=== PATIENT | male | born 2000 | race Caucasian/White ===

== ENCOUNTER 2019-02-01 21:36 | Observation (INO) ==
[2019-02-01] MEDS ORDERED: MoRPHine SULFATE 4 MG/ML 1 ML CARP\\VIAL IV STA (21:59)
[2019-02-01] MEDS ORDERED: ONDANSETRON INJ 2 MG/ML 2 ML VIAL IV STA (21:59)
[2019-02-01] MEDS ORDERED: SODIUM CHLORIDE 0.9% 1000ML 1,000 ML IV SCH (22:00)
[2019-02-01 22:40] LABS: Basophils # (auto) 0.02 K/uL (0-0.2); Basophils % (auto) 0.2 %; Eosinophils # (auto) 0.13 K/uL (0-0.5); Eosinophils % (auto) 1.4 %; Hematocrit (blood only) 37.6 % (42-52); Hemoglobin 13.6 g/dL (14.0-18.0); Immature Granulocytes # (auto) 0.03 K/uL (0.00-0.02); Immature Granulocytes % (auto) 0.3 %; Lymphocytes # (auto) 0.39 K/uL (1.2-3.4); Lymphocytes % (auto) 4.1 %; Mean Corpuscular Hemoglobin 31.6 pg (25-34); Mean Corpuscular Hgb Conc 36.2 g/dL (32-36); Mean Corpuscular Volume 87.2 fL (80-100); Mean Platelet Volume 10.6 fL (7.4-10.4); Monocytes # (auto) 1.06 K/uL (0.11-0.59); Monocytes % (auto) 11.3 %; Neutrophils # (auto) 7.77 K/uL (1.4-6.5); Neutrophils % (auto) 82.7 %; Platelet Count 124 K/uL (130-400); RDW Coefficient of Variation 12.4 % (11.5-14.5); RDW Standard Deviation 39.6 fL (36.4-46.3); Red Blood Count 4.31 M/uL (4.7-6.1)
--- NOTE | 2019-02-01 22:46 | Emergency Department Note ---
History of Present Illness General Chief complaint: Abdominal Pain Stated complaint: ABDOMINAL PAIN, JUST LEFT Time Seen by Provider: 02/01/19 21:44 History of Present Illness Maximum Pain Intensity: 9 This is a 18-year-old male that presents to the emergency department via private vehicle accompanied by mother with complaints of "abdominal pain, just left the emergency department". The patient states that yesterday he had his wisdom teeth extracted, and has been taking p.o. Tylenol every 4 hours. He had 4 doses yesterday and 2 doses today. Each dose was 1000 mg. He has not taken any Advil or NSAIDs. Today around 3 PM he began with right-sided abdominal pain focused in the right upper quadrant. He has associated nausea. No vomiting. He states that he had a thorough work-up here and was discharged home doing well and as he was walking out of the department he began with increased abdominal pain that then worsened when he got home. This prompted his return here today. He rates the overall pain in the right upper quadrant is a 9/10. He notes increased nausea. He states that he has had no abdominal surgeries. No pertinent past medical history. He notes that he has been on amoxicillin for his teeth. Home Medications Home Medications Medication Instructions Recorded Confirmed Type acetaminophen [Tylenol Extra 1,000 mg PO Q6H PRN 02/01/19 02/01/19 History Strength] amoxicillin 0 mg PO BID 02/01/19 02/01/19 History Allergies Allergy/AdvReac Type Severity Reaction Status Date / Time Penicillins Allergy Unknown Unknown Verified 02/01/19 22:38 Past Med/Surg History Medical History (Updated 02/02/19 @ 00:38 by Declan Draper PA-C) No significant past medical history Surgical History (Updated 02/02/19 @ 00:32 by Declan Draper PA-C) Hx of wisdom tooth extraction Social History Preferred Language: Irish Communication Ability: Effective Boner Meat Required: No Beliefs That Will Affect Care: None Current Living Situation: Other Current Living Situation Comment: roommates while at school, otherwise w/ parents Other Information That Helps Us Care for You: No Feels Safe at Home: Yes Smoking Status: Never smoker Do You Dip or Chew Tobacco: No ; Hx Alcohol Use: Yes Hx Substance Use: No Review of Systems A total of 10 systems reviewed and were otherwise negative Physical Exam Vital Signs Vital Signs - 24 hr 02/01/19 21:37 Temperature 37.5 C Temperature Source Oral Pulse Rate 88 Respiratory Rate 20 Respiratory Effort / Characteristics Non-Labored Spontaneous Respiratory Depth Normal Blood Pressure 112/62 Blood Pressure Mean 78 Pulse Oximetry 97 Oxygen Delivery Method Room Air Sepsis Action Taken by Nursing No Action Required VITAL SIGNS - Vital signs and nursing notes were reviewed. Stable and afebrile. GENERAL -18-year-old male appearing his stated age who is in no acute distress. Communicates well with provider and answers questions appropriately. SKIN - Without rashes. No meningeal or petechial rash. HEAD - NC/AT. EYES - Sclera anicteric. EARS - No deformities of external structures noted on gross examination bilaterally. NOSE - Midline and without cyanosis. No epistaxis or purulent drainage noted. MOUTH/OROPHARYNX - Without perioral cyanosis. LUNGS - Chest wall symmetric without accessory muscle use, intercostals retractions, or central cyanosis. Normal vesicular breath sounds CTA B/L. No wheezes, rales, or rhonchi appreciated. CARDIAC - RRR with S1/S2. No murmur, rubs, or gallops appreciated. ABDOMEN - Abdominal contour normal without pulsations or visible masses. BS normoactive all four quadrants. There is right upper quadrant abdominal tenderness to palpation. No palpable masses, hepatosplenomegaly, or ascites noted. EXTREMITIES - No clubbing or peripheral cyanosis. PSYCH - A&O, and cooperates fully with examiner. Pt is very pleasant and interacts well with examiner. Course Administered Medications Lactated Ringer's (Lr) 1,000 mls @ 100 mls/hr IV .Q10H TAMIKA Stop: 03/03/19 23:50 Last Admin: 02/02/19 00:14 Dose: 100 mls/hr Documented by: [id number] Discontinued Medications Sodium Chloride (Nss 1000ml) 1,000 mls @ 999 mls/hr IV .Q1H1M TAMIKA Stop: 02/01/19 23:00 Last Infusion: 02/01/19 23:23 Dose: 0 mls/hr Documented by: [id number] Admin: 02/01/19 22:20 Dose: 999 mls/hr Documented by: [id number] Morphine Sulfate (Morphine Sulfate) 4 mg IV NOW STA Stop: 02/01/19 22:00 Last Admin: 02/01/19 22:19 Dose: 4 mg Documented by: [id number] Ondansetron HCl (Zofran) 4 mg IV NOW STA Stop: 02/01/19 22:00 Last Admin: 02/01/19 22:20 Dose: 4 mg Documented by: [id number] Medical Decision Making Laboratory Data Result diagrams: 02/01/19 22:21 02/01/19 22:26 Lab Results 02/01/19 02/01/19 Range/Units 22:21 22:26 WBC 9.40 (4.8-10.8) K/uL RBC 4.31 L (4.7-6.1) M/uL Hgb 13.6 L (14.0-18.0) g/dL Hct 37.6 L (42-52) % MCV 87.2 (80-100) fL MCH 31.6 (25-34) pg MCHC 36.2 H (32-36) g/dL RDW Std Deviation 39.6 (36.4-46.3) fL RDW Coeff of Pedro 12.4 (11.5-14.5) % Plt Count 124 L (130-400) K/uL MPV 10.6 H (7.4-10.4) fL Immature Gran % (Auto) 0.3 % Neut % (Auto) 82.7 % Lymph % (Auto) 4.1 % [place] % (Auto) 11.3 % Eos % (Auto) 1.4 % Baso % (Auto) 0.2 % Immature Gran # (Auto) 0.03 H (0.00-0.02) K/uL Neut # (Auto) 7.77 H (1.4-6.5) K/uL Lymph # (Auto) 0.39 L (1.2-3.4) K/uL [place] # (Auto) 1.06 H (0.11-0.59) K/uL Eos # (Auto) 0.13 (0-0.5) K/uL Baso # (Auto) 0.02 (0-0.2) K/uL Sodium 138 (136-145) mmol/L Potassium 3.5 (3.5-5.1) mmol/L Chloride 105 (98-107) mmol/L Carbon Dioxide 26 (21-32) mmol/L Anion Gap 7.0 (3-11) BUN 19 H (7-18) mg/dl Creatinine 1.27 (0.6-1.4) mg/dl Est Cr Clr Drug Dosing 95.8 ml/min Est GFR ( Amer) 93.6 Est GFR (Non-Af Amer) 80.8 BUN/Creatinine Ratio 15.0 (10-20) Glucose 119 H (70-99) mg/dl Calcium 8.7 (8.5-10.1) mg/dl Magnesium 1.7 L (1.8-2.4) mg/dl Total Bilirubin 0.6 (0.2-1) mg/dl AST 47 H (15-37) U/L ALT 64 (12-78) U/L Alkaline Phosphatase 44 L (45-117) U/L Total Protein 6.9 (6.4-8.2) gm/dl Albumin 3.7 (3.4-5.0) gm/dl Globulin 3.2 (2.5-4.0) gm/dl Albumin/Globulin Ratio 1.2 (0.9-2) Lipase 116 (73-393) U/L MDM Narrative Patient was seen and evaluated as above in room B8. Review was performed of nursing notes and vital signs. After obtaining a thorough history and physical examination the above work up was performed. His recent visit from today was reviewed. He underwent a thorough work-up for his presentation at that time. He returns with increased right upper quadrant abdominal pain that was worse with movement/walking. He has reproducible right upper quadrant tenderness. Vital signs stable. He does appear to be in pain but is nontoxic. After thoroughly reviewing his visit from today, it appears that both CT and ultrasound showed some "Trace pericholecystic fluid versus mild gallbladder wall thickening". It was at that time felt to be low probability of acute cholecystitis. Given the patient's return with worsening symptoms, repeat labs were obtained. He was given IV fluids, IV morphine and IV Zofran. There is no leukocytosis. Slight anemia with hemoglobin of 13.6. There is also interval elevation of AST at 47. I will note that I do not believe this to be secondary to his Tylenol use. I discussed these findings with the attending physician and subsequently with the on-call general surgeon, Dr. Ambriz. We discussed the patient's presentation, as well as his exam and findings. At this time he is not felt to require emergent surgery however further work-up in the hospital setting via the hospitalist team, HIDA scan, GI consult would be warranted. I then discussed this with the hospitalist. Patient and mother were amenable to admission and felt this be reasonable. They expressed concern about going home given the surgery and pain after discharge initially. Please refer to further documentation regarding his stay. In the evaluation and treatment of this patient, the following differential diagnoses were considered: ASC, PA, Pneumonia, GERD, Cholecystitis, Ascending Cholangitis, Cholydocholithiasis, Bowel Obstruction, PE, Amongst Others. Impression & Plan Abdominal pain, RUQ, Intractable abdominal pain Discharge Plan Visit Data *Final* Discharge Date/Time: 02/01/19 23:33 Chief Complaint: Abdominal Pain Stated Complaint: ABDOMINAL PAIN, JUST LEFT ED Provider: Yves Kimble ED Midlevel Provider: Declan Draper Discharge Problem: Abdominal pain, RUQ, Intractable abdominal pain Patient Disposition: Admitted As Inpatient Condition: Good Discharge Instructions Interventions: ED Discharge Assessment Last Done: 02/01/19 23:33
[2019-02-01 22:59] LABS: Albumin Level 3.7 gm/dl (3.4-5.0); Calcium 8.7 mg/dl (8.5-10.1); Creatinine Clr Calc Pharmacy 95.8 ml/min; Est GFR (African American) 93.6; Est GFR (Non-African American) 80.8; Potassium 3.5 mmol/L (3.5-5.1)
[2019-02-01 23:02] LABS: Albumin Globulin Ratio 1.2 (0.9-2); Bilirubin,Total 0.6 mg/dl (0.2-1); Globulin 3.2 gm/dl (2.5-4.0); Total Protein 6.9 gm/dl (6.4-8.2)
--- NOTE | 2019-02-01 23:04 | History & Physical Report ---
Date of Service February 01, 2019 Assessment & Plan (1) Abdominal pain, RUQ: Possible biliary colic Antibiotic Rx post dental procedure possibly downplaying leah cholecystitis findings on imaging Patient not septic for now Other differentials include : UTI (nitrite positive urine from earlier visit) Gastroenteritis rule out C. difficile, ongoing antibiotic course OBS F Surgery consult RE biliary colic (ER provider already in touch with Dr. Ambriz who recommends HIDA scan in a.m.) Urine cultures Stool C. difficile Complete antibiotic course post dental surgery. DVT prophylaxis. SCDs, ambulation Full code History of Present Illness Chief Complaint: abdominal pain Primary Care Provider: None Patient intends to follow-up at [facility] or [facility] for PCP services upon discharge. History obtained from patient, family, and records. No significant medical history. Patient had dental surgery yesterday after which he was prescribed a course of Amoxicillin to take for a week. This afternoon patient noted right upper quadrant pain with nausea and loose stools, nonbloody. No fever, no chills. Patient brought by mother to the emergency room. Imaging study results as follows: CT OF THE ABDOMEN AND PELVIS WITH CONTRAST 1. Normal appendix. No bowel obstruction. 2. Trace pericholecystic fluid versus mild gallbladder wall thickening. However, gallbladder not distended. These findings do not strongly suggest acute cholecystitis however if right upper quadrant pain, an ultrasound is recommended. US gallbladder 1. No gallstones. Trace sludge within the gallbladder with mild gallbladder wall thickening. No sonographic Mcgowan sign. These findings do not strongly suggest acute cholecystitis. 2. No biliary ductal dilatation. Symptoms attributed to biliary colic. Patient discharged home with instructions to comply with low-fat diet. On the way home, patient had recurrence of abdominal symptoms. Patient return to the ER. Medical History as above Surgical History : Dental surgery, thyroglossal duct cyst excision Family History : Heart disease, gallstones, DM Personal/Social history : Non-smoker, no EtOH intake, college student Allergies Allergy/AdvReac Type Severity Reaction Status Date / Time Penicillins Allergy Unknown Unknown Verified 02/01/19 22:38 Home Medications Home Medications Medication Instructions Recorded Confirmed Type acetaminophen [Tylenol Extra 1,000 mg PO Q6H PRN 02/01/19 02/01/19 History Strength] amoxicillin 0 mg PO BID 02/01/19 02/01/19 History Past Med/Surg History Medical History (Updated 02/02/19 @ 00:38 by Declan Draper PA-C) No significant past medical history Surgical History (Updated 02/02/19 @ 00:32 by Declan Draper PA-C) Hx of wisdom tooth extraction Social History Preferred Language: Syrian Communication Ability: Effective Staff Sonographer Required: No Beliefs That Will Affect Care: None Current Living Situation: Other Current Living Situation Comment: roommates while at school, otherwise w/ parents Other Information That Helps Us Care for You: No Feels Safe at Home: Yes Smoking Status: Never smoker Do You Dip or Chew Tobacco: No ; Hx Alcohol Use: Yes Hx Substance Use: No Review of Systems Review of Systems: As per HPI, all 10 systems reviewed, all other ROS negative Physical Exam Physical Exam: GENERAL: Slightly uncomfortable, no respiratory distress SKIN: Normal color, warm HEENT: [place] palpebral conjunctivae, no ptosis, dry buccal mucosa NECK : Supple, no tenderness CHEST : CTA, no tenderness HEART : RRR, no obvious murmurs ABDOMEN: Some distention, right upper quadrant tenderness EXTREMITIES : No LE swelling/tenderness, no other conspicuous deformities noted NEUROLOGIC : Coherent, no facial asymmetry, no other gross focality Results & Data Vital Signs (Past 12 Hours) Vital Signs Temp Pulse Resp BP Pulse Ox 02/01/19 21:37 37.5 C 88 20 112/62 97 Laboratory Results Laboratory Results WBC 9.40 K/uL (4.8-10.8) 02/01/19 22:21 RBC 4.31 M/uL (4.7-6.1) L 02/01/19 22:21 Hgb 13.6 g/dL (14.0-18.0) L 02/01/19 22:21 Hct 37.6 % (42-52) L 02/01/19 22:21 MCV 87.2 fL (80-100) 02/01/19 22:21 MCH 31.6 pg (25-34) 02/01/19 22:21 MCHC 36.2 g/dL (32-36) H 02/01/19 22:21 RDW Std Deviation 39.6 fL (36.4-46.3) 02/01/19 22:21 RDW Coeff of Pedro 12.4 % (11.5-14.5) 02/01/19 22:21 Plt Count 124 K/uL (130-400) L 02/01/19 22:21 MPV 10.6 fL (7.4-10.4) H 02/01/19 22:21 Immature Gran % (Auto) 0.3 % 02/01/19 22:21 Neut % (Auto) 82.7 % 02/01/19 22:21 Lymph % (Auto) 4.1 % 02/01/19 22:21 [place] % (Auto) 11.3 % 02/01/19 22:21 Eos % (Auto) 1.4 % 02/01/19 22:21 Baso % (Auto) 0.2 % 02/01/19 22: Immature Gran # (Auto) 0.03 K/uL (0.00-0.02) H 02/01/19 22:21 Neut # (Auto) 7.77 K/uL (1.4-6.5) H 02/01/19 22:21 Lymph # (Auto) 0.39 K/uL (1.2-3.4) L 02/01/19 22:21 [place] # (Auto) 1.06 K/uL (0.11-0.59) H 02/01/19 22:21 Eos # (Auto) 0.13 K/uL (0-0.5) 02/01/19 22:21 Baso # (Auto) 0.02 K/uL (0-0.2) 02/01/19 22:21 Sodium 138 mmol/L (136-145) 02/01/19 22:26 Potassium 3.5 mmol/L (3.5-5.1) 02/01/19 22:26 Chloride 105 mmol/L (98-107) 02/01/19 22:26 Carbon Dioxide 26 mmol/L (21-32) 02/01/19 22:26 Anion Gap 7.0 (3-11) 02/01/19 22:26 BUN 19 mg/dl (7-18) H 02/01/19 22:26 Creatinine 1.27 mg/dl (0.6-1.4) 02/01/19 22:26 Est Cr Clr Drug Dosing 95.8 ml/min 02/01/19 22:26 Est GFR ( Amer) 93.6 02/01/19 22:26 Est GFR (Non-Af Amer) 80.8 02/01/19 22: BUN/Creatinine Ratio 15.0 (10-20) 02/01/19 22:26 Glucose 119 mg/dl (70-99) H 02/01/19 22: Calcium 8.7 mg/dl (8.5-10.1) 02/01/19: Total Bilirubin 0.6 mg/dl (0.2-1) 02/01/19 22: AST 47 U/L (15-37) H 02/01/19 22: ALT 64 U/L (12-78) 02/01/19 22: Alkaline Phosphatase 44 U/L (45-117) L 02/01/19 22: Total Protein 6.9 gm/dl (6.4-8.2) 02/01/19 22: Albumin 3.7 gm/dl (3.4-5.0) 02/01/19 22: Globulin 3.2 gm/dl (2.5-4.0) 02/01/19 22: Albumin/Globulin Ratio 1.2 (0.9-2) 02/01/19 22: Lipase 116 U/L (73-393) 02/01/19 22:[address] abdomen pelvis, gallbladder ultrasound as per HPI
[2019-02-01] MEDS ORDERED: PROMETHAZINE HCL 12.5 MG in SODIUM CHLORIDE 0.9% 50 ML IV PRN (23:51)
[2019-02-01] MEDS ORDERED: TRAMADOL HCL 50 MG TABLET PO PRN (23:51)
[2019-02-01] MEDS ORDERED: KETOROLAC TROMETHAMINE 15 MG/ML VIAL IV PRN (23:51)
[2019-02-01] MEDS ORDERED: ACETAMINOPHEN 325 MG TAB PO PRN (23:51)
[2019-02-02] LABS: Magnesium 1.7 mg/dl (1.8-2.4)
[2019-02-02] MEDS: LACTATED RINGER'S 1,000 ML IV SCH ×2 (00:14→09:55)
[2019-02-02] MEDS: AMOXICILLIN/CLAVULANATE 875 MG TAB PO SCH ×3 (00:58→09:55)
[2019-02-02 05:43] LABS: Basophils # (auto) 0.03 K/uL (0-0.2); Basophils % (auto) 0.3 %; Eosinophils # (auto) 0.28 K/uL (0-0.5); Hematocrit (blood only) 36.6 % (42-52); Hemoglobin 12.6 g/dL (14.0-18.0); Immature Granulocytes # (auto) 0.02 K/uL (0.00-0.02); Immature Granulocytes % (auto) 0.2 %; Lymphocytes # (auto) 1.07 K/uL (1.2-3.4); Lymphocytes % (auto) 11.4 %; Mean Corpuscular Hemoglobin 30.6 pg (25-34); Mean Corpuscular Hgb Conc 34.4 g/dL (32-36); Mean Corpuscular Volume 88.8 fL (80-100); Mean Platelet Volume 10.3 fL (7.4-10.4); Monocytes # (auto) 1.21 K/uL (0.11-0.59); Monocytes % (auto) 12.8 %; Neutrophils # (auto) 6.81 K/uL (1.4-6.5); Neutrophils % (auto) 72.3 %; Platelet Count 146 K/uL (130-400); RDW Coefficient of Variation 12.5 % (11.5-14.5); RDW Standard Deviation 40.3 fL (36.4-46.3); Red Blood Count 4.12 M/uL (4.7-6.1); White Blood Count 9.42 K/uL (4.8-10.8)
[2019-02-02 06:17] LABS: Albumin Level 3.3 gm/dl (3.4-5.0); BUN Creatinine Ratio 12.5 (10-20); Calcium 8.8 mg/dl (8.5-10.1); Creatinine Clr Calc Pharmacy 111.5 ml/min; Est GFR (African American) 102.3; Est GFR (Non-African American) 88.3
[2019-02-02 06:20] LABS: Albumin Globulin Ratio 1.2 (0.9-2); Bilirubin,Total 0.6 mg/dl (0.2-1); Globulin 2.8 gm/dl (2.5-4.0); Total Protein 6.1 gm/dl (6.4-8.2)
--- NOTE | 2019-02-02 06:45 | Surgery Consultation ---
Date of Consultation February 02, 2019 Assessment & Plan (1) Abdominal pain, RUQ: Patient is admitted with possible mild acute cholecystitis We have ordered a HIDA scan It is somewhat unusual with his gallbladder being so contracted to have significant acute cholecystitis His mother, I discussed the case with, said his pain deemed to be more when he was walking and laying in bed We may consider trying to treat him conservatively pending on his progress with the HIDA scan but if he does continue to have recurrent pain may consider laparoscopic cholecystectomy History of Present Illness Attending Physician: Zelda Jolley MD History of Present Illness Patient is a 18-year-old male omitted to the emergency room with persistent right upper quadrant pain nausea or vomiting some equivocal findings on ultrasound and CT scan showing a contracted gallbladder mildly thickened wall possible pericholecystic fluid possible sludge indicating mild acute cho lecystitis Patient had wisdom teeth removed on 01/31/2019 His liver functions are essentially normal very mild elevation in his transaminases white blood cell count is normal Allergies Allergy/AdvReac Type Severity Reaction Status Date / Time Penicillins Allergy Unknown Unknown Verified 02/01/19 22:38 Home Medications Home Medications Medication Instructions Recorded Confirmed Type acetaminophen [Tylenol Extra 1,000 mg PO Q6H PRN 02/01/19 02/01/19 History Strength] amoxicillin 0 mg PO BID 02/01/19 02/01/19 History Patient History Medical History (Updated 02/02/19 @ 00:38 by Declan Draper PA-C) No significant past medical history Surgical History (Updated 02/02/19 @ 00:32 by Declan Draper PA-C) Hx of wisdom tooth extraction Social History Preferred Language: Yakut Communication Ability: Effective Corporation Secretary Required: No Beliefs That Will Affect Care: None Current Living Situation: Other Current Living Situation Comment: roommates while at school, otherwise w/ parents Other Information That Helps Us Care for You: No Feels Safe at Home: Yes Smoking Status: Never smoker Do You Dip or Chew Tobacco: No ; Hx Alcohol Use: Yes Hx Substance Use: No Review of Systems Review of Systems: All systems reviewed & are unremarkable except as noted in HPI & below Physical Exam Physical Exam: Patient currently is in his hospital bed and sleeping did awaken him He has not had any narcotics overnight just [id number] medications has not had any nausea or vomiting His pain is improved but he continues to have mild discomfort right upper quadrant Constitutional: well developed and well nourished Respiratory: normal respiratory effort; no respiratory distress Cardiovascular: Rate/Rhythm: regular rate Skin: no rashes, warm and dry Neurologic: awake Psychiatric: Orientation: alert Results & Data Vital Signs (Past 12 Hours) Vital Signs Temp Pulse Pulse Resp BP BP Pulse Ox 02/02/19 00:40 37.1 C 73 18 115/64 97 02/01/19 23:45 37.1 C 73 18 115/64 97 02/01/19 23:18 67 18 109/46 L 97 02/01/19 21:37 37.5 C 88 20 112/62 97 I did review his CAT scan and his ultrasound PG Care Time/CCT Total # of Minutes Spent Total Time Spent with Patient: Total time spent is greater than 50% in coordination of care (as documented) at patient's floor/unit and/or counseling patient:
--- NOTE | 2019-02-02 09:41 | Nuclear Medicine Report ---
NUCLEAR HEPATOBILIARY SCAN CLINICAL HISTORY: Right upper quadrant abdominal pain. COMPARISON STUDY: Abdominal CT and abdominal ultrasound dated 02/01/2019. TECHNIQUE: Dynamic images of the liver and anterior abdomen were obtained every 5 minutes for a total of 60 minutes following the IV administration of 5.1mCi of technetium 99m Choletec. FINDINGS: The hepatobiliary scan shows prompt and homogeneous hepatic uptake. There is visualized act ivity within the intra and extrahepatic biliary tree at 10 minutes, and within the gallbladder at 45 minutes. There is normal biliary to bowel transit, with small bowel visualized by 10 minutes. IMPRESSION: There is no scintigraphic evidence of cholecystitis. Electronically signed by: Star Fountain M.D. 02/02/2019 9:40 AM
--- NOTE | 2019-02-02 09:59 | Surgery Progress Note ---
Date of Service February 02, 2019 Assessment & Plan (1) Abdominal pain, RUQ: His HIDA scan shows filling of the gallbladder consistent with patent cystic duct Not planning on gallbladder surgery at this point we will try his diet encourage him to walk in the hallway Patient may need 1 more day in the hospital if he progresses Dr. Lantigua is covering over the weekend Results & Data Vital Signs (Past 12 Hours) Vital Signs Temp Pulse Resp BP Pulse Ox 02/02/19 07:20 37.0 C 65 15 97/59 L 96 02/02/19 00:40 37.1 C 73 18 115/64 97 02/01/19 23:45 37.1 C 73 18 115/64 97 02/01/19 23:18 67 18 109/46 L 97 PG Care Time/CCT Total # of Minutes Spent Total Time Spent with Patient: Total time spent is greater than 50% in coordination of care (as documented) at patient's floor/unit and/or counseling patient:
--- NOTE | 2019-02-02 18:52 | Discharge Summary ---
Date of Service February 02, 2019 Admission HPI Per Admitting Provider History obtained from patient, family, and records. No significant medical history. Patient had dental surgery yesterday after which he was prescribed a course of Amoxicillin to take for a week. This afternoon patient noted right upper quadrant pain with nausea and loose stools, nonbloody. No fever, no chills. Patient brought by mother to the emergency room. Imaging study results as follows: CT OF THE ABDOMEN AND PELVIS WITH CONTRAST 1. Normal appendix. No bowel obstruction. 2. Trace pericholecystic fluid versus mild gallbladder wall thickening. However, gallbladder not distended. These findings do not strongly suggest acute cholecystitis however if right upper quadrant pain, an ultrasound is recommended. US gallbladder 1. No gallstones. Trace sludge within the gallbladder with mild gallbladder wall thickening. No sonographic Mcgowan sign. These findings do not strongly suggest acute cholecystitis. 2. No biliary ductal dilatation. Symptoms attributed to biliary colic. Patient discharged home with instructions to comply with low-fat diet. On the way home, patient had recurrence of abdominal symptoms. Patient return to the ER. Medical History as above Surgical History : Dental surgery, thyroglossal duct cyst excision Family History : Heart disease, gallstones, DM Personal/Social history : Non-smoker, no EtOH intake, college student Admission Exam Per Admitting Provider GENERAL: Slightly uncomfortable, no respiratory distress SKIN: Normal color, warm HEENT: Emery palpebral conjunctivae, no ptosis, dry buccal mucosa NECK : Supple, no tenderness CHEST : CTA, no tenderness HEART : RRR, no obvious murmurs ABDOMEN: Some distention, right upper quadrant tenderness EXTREMITIES : No LE swelling/tenderness, no other conspicuous deformities noted NEUROLOGIC : Coherent, no facial asymmetry, no other gross focality Principal Diagnosis Abdominal pain Elevated liver enzymes Discharge Exam General: Well nourished, well hydrated , average body habitus, no acute distress and not ill appearing Eyes: PERRL, conjunctivae normal, not pale, anicteric sclerae, EOM intact bilaterally ENMT: External ear and nose normal, oropharynx normal Neck: Normal visual inspection, no tracheal deviation, no swelling noted Respiratory: Normal respiratory effort, no respiratory distress, lungs clear to auscultation, no crackles and no wheezes Cardiovascular: Pulse is RRR. Heart Sounds: normal S1 and normal S2; no murmurs. Vessels: normal peripheral pulses Extremities: no pedal edema Chest (Breasts): Chest: normal inspection of chest Gastrointestinal (Abdomen): Abdomen is not distended, soft, non-tender to palpation, no guarding, no palpable hepatosplenomegaly, normal bowel sounds Musculoskeletal: No cyanosis or clubbing, all extremities motor strength 5/5 Skin: No rash noted on gross inspection, No ulcers noted Neurologic: Alert and oriented x 3, No focal weakness, sensation grossly intact Psychiatric: Alert and oriented x 3, euthymic affect, no depressed affect Lymphatic: No cervical and axillary lymphadenopathy Discharge Data Allergies Allergy/AdvReac Type Severity Reaction Status Date / Time Penicillins Allergy Unknown Unknown Verified 02/01/19 22:38 Consultations 02/01/19 22:59 ED Decision to Admit Stat 02/01/19 23:51 Consult General Surgery Routine Hospital Course (1) Abdominal pain, RUQ: (2) Elevated liver enzymes: CT A/P - Trace pericholecystic fluid versus mild gallbladder wall thickening. However, gallbladder not distended. These findings do not strongly suggest acute cholecystitis however if right upper quadrant pain, an ultrasound is recommended Gall bladder USS - No gallstones. Trace sludge within the gallbladder with mild gallbladder wall thickening. No sonographic Mcgowan sign. These findings do not strongly suggest acute cholecystitis HIDA scan - There is no scintigraphic evidence of cholecystitis. Elevated Liver enzymes may be due to medications. He was recently on amoxicillin for tooth extraction and reported taking tylenol 1g qid some days ago. Mother also reported that patient donates plasma and was recently told he had some questionable hepatitis abnormality. This led them to get a hepatitis panel and STI panel which was reported to be all negative. Patient and mother do not know the detailed tests done as part of panel AST and ALT increased from 47 and 64 yesterday to 105 and 146 respectively ALP was 38. Bilirubin 0.6 This morning, all of patient symptoms and abdominal pain had resolved. He was able to tolerate diet well. Discussed with patient about repeating LFT in AM. However, he wanted to go home today. Gave script for repeat CMP to assess LFT in 2 days I instructed him and mother to follow up with PCP within 1 week. I advised him to go with reported tests to PCP and if LFTs are going up will need further evaluation. Discontinued all antibiotics and acetaminophen at this time Total Time Total Time Spent Total Time Spent (In Minutes): 35 Total Time Includes: Examination of the Patient, Discharge Planning and Medication Reconciliation Discharge Plan Discharge Items Patient Disposition: Home - Self-Care Reason For Visit: abd pain Discharge Diagnosis: Abdominal Pain Elevated liver enzyme Condition on Discharge: Good Activity: Resume your previous activity Non-emergency contact: Primary Care Provider Call non-emergency contact if: you have any medication questions Follow-up/Referrals: [facility] [Primary Care Provider] - Diet: Regular Ambulatory Orders: Comprehensive Metabolic Panel (Routine) Timeframe: 2 Days Location: Determined by Patient Ordered By: Zelda Salazar Attending Provider Instructions: Mr Shore. You were admitted to the hospital for right sided abdominal pain associated with nausea and loose stool. Evaluation showed mildly elevated liver enzymes. You had multiple scans with CT, Ultrasound and HIDA scan which did not reveal cholecystitis. Your symptoms resolved. You are being discharged to follow up with your Primary Doctor. You also reported getting some hepatitis panel testing done recently which were negative. You also reported getting antibiotics and tylenol for recent tooth extraction. Please recheck blood test (Complete Metabolic Panel) by Thursday02/04/19 to assess how the liver enzymes are trending. Further assessment of possible liver disease may be required if still abnormal. Please go with the recent hepatitis panel test results you reported to your Primary Doctor's visit. It was a pleasure taking care of you. Pending Studies at Discharge: Yes Stand-Alone Forms: [facility], Smoking Cessation Medications and DC Order Prescriptions: Discontinued amoxicillin 875 mg Tablet 0 mg PO BID RF: 0 acetaminophen [Tylenol Extra Strength] 500 mg Tablet 1,000 mg PO Q6H PRN (Reason: Pain) RF: 0 Discharge Orders: Discharge Order (Routine); Ordered 02/02/19 Ordered By: Zelda Jolley Admission Data Admit Date/Time: 02/01/19 23:08 Attending Provider: Zelda Jolley I. Admit Provider: Russ Gillis Primary Care Provider: [facility] Other Providers: Russ Gillis ; Pñea Ambriz Other Interventions: Discharge Summary Assessment (RN) Last Done: 02/02/19 14:42 DC Date/Time DO NOT enter until pt leaves facility: 02/02/19 15:25
== END 2019-02-02 15:25 | disposition home or self-care (01) ==
LOC: 3N 21:36 → ED 21:36 → 3N 23:33
DX: Z88.0 Allergy status to penicillin; R74.8 Abnormal levels of other serum enzymes; R10.11 Right upper quadrant pain